=== PATIENT | female | born 1935 | race Caucasian/White ===

== ENCOUNTER → 2018-06-22 | Outpatient (CLI) | payer MEDICARE, BC ==
[2018-06-22 13:24] LABS: ABSOLUTE LYMPHOCYTES (AUTO) 0.9 10^3/uL (0.5-4.7); ABSOLUTE MONOCYTES (AUTO) 0.3 10^3/uL (0.1-1.4); ABSOLUTE NEUT (AUTO) 4.4 10^3/uL (1.7-8.2); BASOPHILS % (AUTO) 0.5 % (0-2); EOSINOPHILS % (AUTO) 0.8 % (0-6); HEMOGLOBIN 13.9 g/dL (12.0-15.5); LYMPHOCYTES % (AUTO) 16.1 % (13-45); MEAN CORPUSCULAR HEMOGLOBIN 30.5 pg (27.0-33.4); MEAN CORPUSCULAR VOLUME 90 fl (80-97); MONOCYTES % (AUTO) 5.9 % (3-13); PLATELET COUNT 132 10^3/uL (150-450); RED BLOOD COUNT 4.57 10^6/uL (3.72-5.28); RED CELL DISTRIBUTION WIDTH 13.8 % (11.5-14.0); SEGMENTED NEUTROPHILS % (AUTO) 76.7 % (42-78); TOTAL CELLS COUNTED % (AUTO) 100 %; WHITE BLOOD COUNT 5.7 10^3/uL (4.0-10.5)
[2018-06-22 14:04] LABS: ERYTHROCYTE SEDIMENTATION RATE 11 mm/hr (0-30)
== END ==
LOC: OD 12:25
PROVIDERS: ATTEND Ophthalmology
DX: H40.1212 Low-tension glaucoma, right eye, moderate stage (principal)
CPT/HCPCS: 36415; 85025; 85652; 86140

== ENCOUNTER → 2018-06-23 | Outpatient (CLI) | payer MEDICARE, BC ==
--- NOTE | 2018-06-23 17:12 | RADIOLOGY REPORT (SQ) ---
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 Images stored on PACS. LIMITATIONS: None. FINDINGS: RIGHT CAROTID CCA Velocities: Normal velocities and waveforms without evidence of high-grade stenosis. ICA Velocities Peak systolic 100 cm/s. End diastolic 15 cm/s. Proximal ICA/CCA peak systolic ratio 1.68. Normal waveform without evidence of high-grade stenosis. Scattered atherosclerosis at the carotid bu lb. LEFT CAROTID CCA Velocities: Normal velocities waveforms without evidence of high-grade stenosis. ICA Velocities Peak systolic 106 cm/s. End diastolic 14 cm/s. Proximal ICA/CCA peak systolic ratio is 0.77. Normal waveform without evidence of high-grade stenosis. Scattered atherosclerosis at the carotid bu lb. VERTEBRAL ARTERIES: Dominant right vertebral artery. Diminutive left vertebral artery with limited e valuation. Antegrade flow. Normal waveforms. OTHER: No other significant finding. IMPRESSION: 1. Scattered atherosclerosis with less than 50% stenosis of the bilateral internal mattson tid arteries. 2. Mildly elevated velocities within the distal left common carotid artery of 137 cm/s. 3. Dominant right vertebral artery. Diminutive left vertebral artery with limited evaluation. Ante grade flow bilaterally. COMMENT: Quality ID #195: Velocity criteria are extrapolated from the diameter data as defined by t he Society of Radiologists in Ultrasound Consensus Conference. Radiology 2003: 229; 340-346. TECHNICAL DOCUMENTATION: JOB ID: [id number] [employer]- All Rights Reserved Reading location - IP/workstation name: [email or web address]
== END ==
LOC: SP 14:46
PROVIDERS: ATTEND Ophthalmology
DX: H40.1212 Low-tension glaucoma, right eye, moderate stage (principal)
CPT/HCPCS: 93880

== ENCOUNTER → 2018-07-31 | Outpatient (CLI) | payer MEDICARE, BC ==
--- NOTE | 2018-07-31 14:08 | RADIOLOGY REPORT (SQ) ---
EXAM DESCRIPTION: CT HEAD COMBO COMPLETED DATE/TIME: 07/31/2018 1:43 pm REASON FOR STUDY: H53.8 OTHER VISUAL DISTURBANCES COMPARISON: 10/19/2009 TECHNIQUE: Axial images acquired through the brain without and with intravenous contrast. Images re viewed with bone, brain, and subdural windows. Additional sagittal and coronal reconstructions were generated. Images stored on PACS. All CT scanners at this facility use dose modulation, iterative reconstruction, and/or weight based d osing when appropriate to reduce radiation dose to as low as reasonably achievable (ALARA). [facility]: Dose Right [facility]: CareDose [facility]: Dose Right [facility]: Teradose 4D [facility]: apstrata CONTRAST TYPE AND DOSE: contrast/concentration: Isovue 350.00 mg/ml; Total Contrast Delivered: 49.0 ml; Total Saline Delivered: 54.0 ml RENAL FUNCTION: Creatinine 0.8 RADIATION DOSE: CT Rad equipment meets quality standard of care and radiation dose reduction techniq ues were employed. CTDIvol: 48.6 - 48.6 mGy. DLP: 1858 mGy-cm. . LIMITATIONS: None. FINDINGS: VENTRICLES: Prominent. CEREBRUM: No masses. No hemorrhage. No midline shift. Areas of low density in the white matter mos t likely due to chronic micro-vascular ischemic change. No evidence for acute infarction. No enhanc ing lesions. CEREBELLUM: No masses. No hemorrhage. No alteration of density. No evidence for acute infarction. No enhancing lesions. EXTRAAXIAL SPACES: Age-related involutional change. No fluid collections. No masses. No enhancing lesions. ORBITS AND GLOBE: No intra- or extraconal masses. Normal contour of globe without masses. CALVARIUM: No fracture. PARANASAL SINUSES: No fluid or mucosal thickening. SOFT TISSUES: No mass or hematoma. OTHER: No other significant finding. IMPRESSION: CHRONIC CHANGES OF ATROPHY AND MICROVASCULAR ISCHEMIA. NO ACUTE PROCESS. NO ENHANCING LESIONS. EVIDENCE OF ACUTE STROKE: NO. TECHNICAL DOCUMENTATION: JOB ID: [id number] Quality ID # [id number]: Final reports with documentation of one or more dose reduction techniques (e.g., Au tomated exposure control, adjustment of the mA and/or kV according to patient size, use of iterative reconstruction technique) 2010 [email or web address]- All Rights Reserved Reading location - IP/workstation name: [email or web address]
== END ==
LOC: RAD 13:04
PROVIDERS: ATTEND Ophthalmology
DX: H53.8 Other visual disturbances (principal); H47.011 Ischemic optic neuropathy, right eye
CPT/HCPCS: 70470; 82565

== ENCOUNTER → 2018-11-24 | Outpatient (CLI) | payer MEDICARE, BC ==
--- NOTE | 2018-11-24 09:17 | ST Modified Barium Swallow ---
Recommendation - Recommendations Recommendations: No diet change recommendations. Do recommend alternating bites and sips to reduce residue from solids. Medical Diagnoses - Medical Diagnoses Medical Diagnosis Description & ICD-10 Code(s): dysphagia R13.10 Other Medical Diagnoses/Co-Morbidities: per patient report: history of skin cancer on right side of neck with surgical intervention, patient reports chemotherapy, did not report radiation treatment. Reflux and hiatal hernia reported in physician progress note. Significant vision deficits. ST Modified Barium Swallow - General Date: 11/24/18 Referring Physician: Dr. Martini Date of Onset: 05/19/17 - approximate onset date Reason for Referral: "dysphagia" - History History obtained from: Patient -: Medical - Patient does not report any swallowing symptoms at this time, other than "my voice gets dry". The patient reports that she had an x-ray performed in August which found "a mass on my larynx". 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 Patient denies needing any diet changes, other than avoiding spicey foods due to reflux. No recent pneumonia reported. Medications: per patient report: prilosec, "heart pill" Allergies: none reported - Functional Status Prior Functional Status: INDEPENDENT: feeding Current Functional Limitations: feeding - Subjective Patient/caregiver goal(s): safe swallow, r/o struct. abnormality Cognitive-Linguistic Function: Functional Speech Intelligibility: WNL Current Nutritional Means: PO Current PO diet: Regular Current symptoms: other - none reported by patient Pain: Patient reports, 0/5 - Objective Assessment: Upright, Left Lateral - Food Trials Used Food trials used: Thin liquids, Pureed, Regular The patient: Was Able to Self Feed - Oral-Motor Skills Velo-pharyngeal function: Unremarkable - Assessment Oral prep: Normal Labial closure: Adequate Leakage: None Mastication: Adequate Lingual Movement: Normal Oral stage: Normal for this Procedure - Pharyngeal Stage Initiation of Pharyngeal Stage Reflex: Normal Decreased laryngeal elevation: No Reduced Velopharyngeal Closure: no reduced tongue-based retraction: No Pre-swallow pooling in valleculae: None Pre-Swallow pooling in pyriforms: None Reduced Thyro-Hyoid approximation: No Reduced epiglottic excursion: No Multiple Swallows with: Cleared w/ Liquid Assist Post-swallow residulas vallecular: Moderate Post-Swallow residuals in pyriforms: Mild - Esophageal Stage Esophageal Stage: Mild stasis of material seen at level of cricopharyngeus. - Fall Risk Assessment Medications/Conditions that increase fall risks include: Antidepressants, sedatives, anti-arrhythmic, diuretic, benzodiazipenes, neuroleptics. BP regulation problems, cardiac problems, balance or gait deficits, neurological problems. Fall Risk Actions Taken: No action needed - Behavioral Observations During evaluation process patient: was pleasant, was cooperative, able to answer questions - Treatment / Educational Needs: Treatment/Education Needs: Treatment consisted of patient education on the role of the Speech Pathologist. Patient's plan of care and golas were communicated as well as scheduling and attendance policies. Recommendations for initial home program were shared. Patient demonstrated understanding and verbalized agreement. - Impression/Summary Laryngeal Penetration: Yes - signs of trace penetration on the swallow Tracheal Aspiration: no Patient presents with: Pharyngeal stage dysph. - mild Risk of Aspiration: Mild Evaluation and Findings: Patient presents with mild pharyngeal phase dysphagia, characterized by residue in valleculae and pyriform of solids. Residue was able to clear with liquid wash. No overt dysfunction of musculature noted, although some stasis within the UES was noted. Airway remained protected during swallowing. - Recommendations Solid diet recommendations: Regular Liquid Diet Modification: Thin Strict aspiration precautions: Yes Pt/Family education and followup with MD: Yes Dysphagia therapy with WELL SERVICES OPERATOR: no Recommended techniques: Fully Upright During Meal, Small Bites and Sips, Alternate Bites/Sips Information, Precautions and Recommendations: Patient (Written), Patient (Verbal) - Time Total Time: 30 - Plan of Care Strategies to optimize patient understanding include:: ongoing assessment of educational needs, implementation of educational strategies, and re-education. - - -: Thank you for the opportunity to work with this patient and his/her family. Should you have any questions about this patient's plan or progress, I can be reached at [phone].
--- NOTE | 2018-11-24 10:46 | RADIOLOGY REPORT (SQ) ---
EXAM DESCRIPTION: BARIUM SWALLOW ESOPHAGUS COMPLETED DATE/TIME: 11/24/2018 8:57 am REASON FOR STUDY: DYSPHAGIA R13.12 DYSPHAGIA, OROPHARYNGEAL PHASE COMPARISON: None. TECHNIQUE: Under fluoroscopic guidance, patient ingested effervescent granules followed by thick and thin barium. Fluoroscopic spot images and routine radiographic images acquired and stored on PACS. 12 MM BARIUM TABLET GIVEN: Yes. Patient was unable to swallow the 12 mm barium tablet. Tablet stuck in the patient's vallecula. She coughed the tablet out. LIMITATIONS: None. FLUOROSCOPY TIME: FLUORO TIME: 3.7 minutes 12 series of digital fluoroscopic images saved to PACS. FINDINGS: NEUROMUSCULAR COORDINATION OF SWALLOW: No aspiration. Please see cookie swallow report, v ideo assisted swallowing study with speech pathology was performed immediately prior to this exam. ESOPHAGEAL MOTILITY: Limited peristalsis. No esophageal spasm. ESOPHAGEAL MUCOSA: Normal mucosa without masses or ulceration. GASTRO-ESOPHAGEAL JUNCTION: There is a small hiatal hernia with gastric fundal diverticuli and a Scha tzki's ring. Unprovoked gastroesophageal reflux to the cervical spine. NON-GI TRACT STRUCTURES: No significant finding. OTHER: No other significant finding. IMPRESSION: Small hiatal hernia with gastric fundal diverticuli and Schatzki's ring. Unprovoked gastroesophageal reflux to the cervical esophagus COMMENT: Quality ID 145: Final reports for procedures using fluoroscopy that document radiation exp osure indices, or exposure time and number of fluorographic images (if radiation exposure indices are not available) TECHNICAL DOCUMENTATION: JOB ID: [id number] [employer]- All Rights Reserved Reading location - IP/workstation name: [email or web address]
--- NOTE | 2018-11-24 16:14 | RADIOLOGY REPORT (SQ) ---
EXAM DESCRIPTION: YAKOV SWALLOW COMPLETED DATE/TIME: 11/24/2018 8:55 am REASON FOR STUDY: DYSPHAGIA R13.12 DYSPHAGIA, OROPHARYNGEAL PHASE COMPARISON: None. TECHNIQUE: Videofluoroscopic swallowing examination was performed in conjunction with speech patholo gy. Videofluoroscopic imaging was obtained and reviewed and these are the findings: RADIATION DOSE: 1 minutes 53 seconds of fluoroscopy was used. 2 images saved to PACS. LIMITATIONS: None FINDINGS: The patient was brought into the fluoro room and placed upright on a modified barium swall ow chair. The patient was then given multiple consistencies mixed with barium to swallow under live fluoroscopic video guidance. According to the Speech Pathologist there was no penetration or aspirat ion. Moderate post swallow residual contrast within the vallecular. IMPRESSION: NO EVIDENCE OF PENETRATION OR ASPIRATION. PLEASE SEE SPEECH PATHOLOGIST REPORT FOR OTHER FINDINGS AND RECOMMENDATIONS. COMMENT: Quality ID 145: Final reports for procedures using fluoroscopy that document radiation exp osure indices, or exposure time and number of fluorographic images (if radiation exposure indices are not available) TECHNICAL DOCUMENTATION: JOB ID: [id number] [employer]- All Rights Reserved Reading location - IP/workstation name: [email or web address]
== END ==
LOC: RAD 08:04
PROVIDERS: ATTEND Internal Medicine
DX: K22.2 Esophageal obstruction (principal); K21.9 Gastro-esophageal reflux disease without esophagitis; K44.9 Diaphragmatic hernia without obstruction or gangrene; R13.12 Dysphagia, oropharyngeal phase
CPT/HCPCS: 74220; 74230